=== PATIENT | male | born 1960 | race Hispanic/Latino ===

== ENCOUNTER 2018-03-01 00:53 | Emergency (ER) | payer MEDICARE ==
[~2018-03-01] VITALS: Ht 177.8 cm; Wt 97.5 kg
[~2018-03-01 00:53] MED LIST: CREON DR 12,001 EACH PO; CRESTOR20 MG PO; DULOXETINE PO; FENOFIBRATE PO; FENOFIBRATE145 MG PO; HUMALOG100 UNIT/1 SQ; INSULIN PUMP; LISINOPRIL5 MG PO; METFORMIN HCL500 M2 PO; NEXIUM40 MG PO; ZETIA10 MG PO
[2018-03-01] MEDS ORDERED: FUROSEMIDE INJ 10 MG/ML 4 ML VIAL IV ONE (01:15)
[2018-03-01 01:21] LABS: BASOPHILS % 0.8 % (0.0-1.0); EOSINOPHILS # (AUTO) 0.1 (0.0-0.4); HEMATOCRIT 41.3 % (38.2-49.6); HEMOGLOBIN 14.4 g/dL (14.0-18.0); LYMPHOCYTES # (AUTO) 1.1 (1.0-3.2); LYMPHOCYTES % 26.4 % (18.0-39.1); MEAN CORPUSCULAR HEMOGLOBIN 31.8 pg (28-32); MEAN CORPUSCULAR HGB CONC 34.9 g/dL (31-35); MEAN CORPUSCULAR VOLUME 91.2 fL (81-99); MONOCYTES # (AUTO) 0.4 (0.2-0.8); MONOCYTES % 10.1 % (4.4-11.3); NEUTROPHILS # (AUTO) 2.4 (2.1-6.9); NEUTROPHILS % 59.7 % (38.7-80.0); PLATELET COUNT 118 x10e3/uL (140-360); RED BLOOD COUNT 4.53 x10e6/uL (4.3-5.7); RED CELL DISTRIBUTION WIDTH 11.9 % (11.7-14.4)
[2018-03-01 01:48] LABS: ALANINE AMINOTRANSFERASE 23 IU/L (0-55); ALBUMIN 3.9 g/dL (3.5-5.0); ALBUMIN/GLOBULIN RATIO 1.2 (0.8-2.0); ALKALINE PHOSPHATASE 107 IU/L (40-150); ANION GAP 15.9 mmol/L (8-16); BLOOD UREA NITROGEN 16 mg/dL (7-26); BUN/CREATININE RATIO 13 (6-25); CALCIUM 9.7 mg/dL (8.4-10.2); CARBON DIOXIDE 22 mmol/L (22-29); CHLORIDE 102 mmol/L (98-107); CREATINE KINASE 63 IU/L (30-200); CREATININE, SERUM 1.24 mg/dL (0.72-1.25); EST GLOMERULAR FILTRATION RATE 60 ML/MIN (60-); POTASSIUM 3.9 mmol/L (3.5-5.1); SODIUM 136 mmol/L (136-145)
[2018-03-01 01:52] LABS: GLUCOSE 460 mg/dL (74-118)
[2018-03-01 02:01] LABS: BILIRUBIN,URINE NEGATIVE (NEGATIVE); CLARITY,URINE CLEAR (CLEAR); COLOR,URINE YELLOW (YELLOW); KETONES,URINE NEGATIVE (NEGATIVE); LEUKOCYTE ESTERASE ,URINE NEGATIVE (NEGATIVE); NITRITE,URINE NEGATIVE (NEGATIVE); PROTEIN,URINE DIPSTICK NEGATIVE (NEGATIVE); URINE UROBILINOGEN 0.2 mg/dL (0.2 - 1)
--- NOTE | 2018-03-01 02:01 | Diagnostic Imaging Report ---
CHEST 2 VIEWS, Technique: CHEST 2 VIEWS Comparison: 01/05/2017 Clinical history: Chest pain DISCUSSION: Stable appearance of the heart, mediastinum, lungs, and pleural spaces. There is IMPRESSION: No acute abnormality Signed by: Dr Charley Huynh MD on 03/01/2018 1:57 AM
[2018-03-01 02:02] LABS: EPITHELIAL CELLS,URINE FEW /LPF; RBC,URINE 0-5 /HPF (0-5); WBC,URINE (MAN) 0-5 /HPF (0-5)
[2018-03-01 02:17] VITALS: BP 152/93
== END 2018-03-01 02:35 | disposition home or self-care (01) ==
LOC: ER 00:53
DX: M25.572 Pain in left ankle and joints of left foot (principal); M25.571 Pain in right ankle and joints of right foot; R60.0 Localized edema
CPT/HCPCS: 36415; 71046; 80053; 81001; 82550; 82553; 83880; 84484; 85025; 93005; 99283; J1940

== ENCOUNTER → 2022-04-17 | Outpatient (CLI) | payer MEDICARE | LOC: MRI 09:54 | PROVIDERS: ATTEND Podiatrist Foot & Ankle Surgery | DX: M86.072 Acute hematogenous osteomyelitis, left ankle and foot (principal) ==

== ENCOUNTER 2022-04-26 09:10 | Inpatient (IN) | payer MEDICARE ==
[~2022-04-26] VITALS: Ht 160 cm; Wt 97.5 kg
[2022-04-26 09:59] LABS: BASOPHILS % 0.7 % (0.0-1.0); EOSINOPHILS # (AUTO) 0.1 (0.0-0.4); EOSINOPHILS % 3.2 % (0.0-6.0); HEMATOCRIT 47.8 % (38.2-49.6); LYMPHOCYTES # (AUTO) 1.2 (1.0-3.2); LYMPHOCYTES % 26.5 % (18.0-39.1); MEAN CORPUSCULAR HEMOGLOBIN 31.5 pg (28-32); MEAN CORPUSCULAR HGB CONC 33.5 g/dL (31-35); MEAN CORPUSCULAR VOLUME 94.1 fL (81-99); MONOCYTES # (AUTO) 0.5 (0.2-0.8); MONOCYTES % 11.3 % (4.4-11.3); NEUTROPHILS # (AUTO) 2.6 (2.1-6.9); NEUTROPHILS % 57.8 % (38.7-80.0); PLATELET COUNT 143 x10e3/uL (140-360); RED BLOOD COUNT 5.08 x10e6/uL (4.3-5.7); RED CELL DISTRIBUTION WIDTH 11.3 % (11.7-14.4)
[2022-04-26 10:16] LABS: INR 0.97; PROTHROMBIN TIME 13.8 seconds (11.9-14.5)
[2022-04-26 10:17] LABS: ALBUMIN/GLOBULIN RATIO 1.3 (0.8-2.0); ANION GAP 14.8 mmol/L (8-16); CALCIUM 9.6 mg/dL (8.4-10.2); CREATININE, SERUM 0.79 mg/dL (0.72-1.25); PARTIAL THROMBOPLASTIN TIME 35.4 seconds (23.8-35.5); POTASSIUM 3.8 mmol/L (3.5-5.1)
[2022-04-26] MEDS: Vancomycin IV 1 GM in SODIUM CHLORIDE 0.9% 250ML 250 ML IV SCH ×2 (10:54→21:40)
[2022-04-26] MEDS ORDERED: DEXTROSE 50% SYRINGE 50 ML IV PRN ×2 (12:30→16:00)
[2022-04-26] MEDS ORDERED: ONDANSETRON HCL INJ 2MG/ML 2ML 2 MG/ML VIAL IV PRN (12:30)
[2022-04-26] MEDS: SODIUM CHLORIDE 0.9% 1000ML 1,000 ML IV SCH (12:51)
[2022-04-26 15:28] VITALS: BP 142/70
[2022-04-26 15:35] VITALS: BP 142/70
[2022-04-26] MEDS: AMYLAS/CELLU/LIPAS/PROTEA/BILE 12,000 UNIT CAP PO SCH (16:13)
[2022-04-26 16:17] VITALS: BP 142/70
[2022-04-26] MEDS: INSULIN REGULAR, HUMAN 100 UNIT/1 ML SQ SCH ×2 (16:30→21:50)
[2022-04-26] MEDS ORDERED: CYMBALTA30 MG PO (16:59)
[2022-04-26] MEDS: METFORMIN HCL 500 MG TAB CR PO SCH (17:00)
[2022-04-26] MEDS ORDERED: SYNJARDY XR 121 EACH (17:02)
[2022-04-26] MEDS ORDERED: ASPIRIN81 MG PO (17:02)
[2022-04-26] MEDS ORDERED: NEURONTIN400 MG PO (17:02)
[2022-04-26] MEDS ORDERED: LOSARTAN POTASS25 MG PO (17:02)
[2022-04-26 20:00] VITALS: BP 151/81
[2022-04-26 20:17] VITALS: BP 142/70
[2022-04-27] VITALS (8 sets, daily range): BP systolic 129–159; BP diastolic 63–91
[2022-04-27] MEDS: SODIUM CHLORIDE 0.9% 1000ML 1,000 ML IV SCH ×2 (05:23→17:25)
[2022-04-27 05:46] LABS: BASOPHILS % 0.6 % (0.0-1.0); EOSINOPHILS # (AUTO) 0.2 (0.0-0.4); EOSINOPHILS % 3.4 % (0.0-6.0); HEMATOCRIT 47.2 % (38.2-49.6); HEMOGLOBIN 15.8 g/dL (14.0-18.0); LYMPHOCYTES # (AUTO) 1.3 (1.0-3.2); LYMPHOCYTES % 24.3 % (18.0-39.1); MEAN CORPUSCULAR HEMOGLOBIN 31.7 pg (28-32); MEAN CORPUSCULAR HGB CONC 33.5 g/dL (31-35); MEAN CORPUSCULAR VOLUME 94.8 fL (81-99); MONOCYTES # (AUTO) 0.7 (0.2-0.8); MONOCYTES % 12.7 % (4.4-11.3); NEUTROPHILS # (AUTO) 3.1 (2.1-6.9); NEUTROPHILS % 58.8 % (38.7-80.0); PLATELET COUNT 140 x10e3/uL (140-360); RED BLOOD COUNT 4.98 x10e6/uL (4.3-5.7); RED CELL DISTRIBUTION WIDTH 11.1 % (11.7-14.4)
[2022-04-27 06:05] LABS: ALBUMIN 3.8 g/dL (3.5-5.0); ALBUMIN/GLOBULIN RATIO 1.2 (0.8-2.0); ANION GAP 13.8 mmol/L (8-16); CALCIUM 9.6 mg/dL (8.4-10.2); CREATININE, SERUM 0.88 mg/dL (0.72-1.25); POTASSIUM 3.8 mmol/L (3.5-5.1)
[2022-04-27] MEDS ORDERED: SYNJARDY XR 121 EACH (06:57)
[2022-04-27] MEDS: INSULIN REGULAR, HUMAN 100 UNIT/1 ML SQ SCH ×5 (07:30→21:51)
[2022-04-27] MEDS: METFORMIN HCL 500 MG TAB CR PO SCH (08:00)
[2022-04-27] MEDS ORDERED: Vancomycin IV 1 GM VIAL ONE (08:51)
[2022-04-27] MEDS ORDERED: NON-FORMULARY MEDICATION (Rosuvastatin Calcium (Crestor) 20 MG) PO SCH (09:00)
[2022-04-27] MEDS: AMYLAS/CELLU/LIPAS/PROTEA/BILE 12,000 UNIT CAP PO SCH ×3 (09:58→17:24)
[2022-04-27] MEDS: PANTOPRAZOLE SOD 40 MG TABEC PO SCH (09:59)
[2022-04-27] MEDS: CRESTOR 10MG PO SCH (09:59)
[2022-04-27] MEDS: Vancomycin IV 1 GM in SODIUM CHLORIDE 0.9% 250ML 250 ML IV SCH ×2 (09:59→23:35)
[2022-04-27] MEDS: FENOFIBRATE 145 MG TAB PO SCH (10:00)
[2022-04-27] MEDS: EZETIMIBE 10 MG TAB PO SCH (10:00)
[2022-04-27] MEDS: SYNJARDY PO SCH (22:00)
[2022-04-28] VITALS (8 sets, daily range): BP systolic 117–166; BP diastolic 59–97
[2022-04-28] MEDS: SODIUM CHLORIDE 0.9% 1000ML 1,000 ML IV SCH ×2 (05:59→19:18)
[2022-04-28] MEDS: INSULIN REGULAR, HUMAN 100 UNIT/1 ML SQ SCH ×4 (07:30→20:16)
[2022-04-28] MEDS: Vancomycin IV 1 GM in SODIUM CHLORIDE 0.9% 250ML 250 ML IV SCH ×2 (09:45→20:16)
[2022-04-28] MEDS: SYNJARDY PO SCH ×3 (10:00→22:00)
[2022-04-28] MEDS: CRESTOR 10MG PO SCH (10:03)
[2022-04-28] MEDS: FENOFIBRATE 145 MG TAB PO SCH (10:03)
[2022-04-28] MEDS: AMYLAS/CELLU/LIPAS/PROTEA/BILE 12,000 UNIT CAP PO SCH ×3 (10:03→17:49)
[2022-04-28] MEDS: PANTOPRAZOLE SOD 40 MG TABEC PO SCH (10:03)
[2022-04-28] MEDS: EZETIMIBE 10 MG TAB PO SCH (10:03)
[2022-04-28] MEDS: SODIUM CHLORIDE FLUSH 10 ML SYR IV SCH ×2 (10:04→20:16)
[2022-04-29] VITALS (7 sets, daily range): BP systolic 108–154; BP diastolic 58–82
[2022-04-29] MEDS: SODIUM CHLORIDE 0.9% 1000ML 1,000 ML IV SCH ×2 (05:06→19:44)
[2022-04-29] MEDS: INSULIN REGULAR, HUMAN 100 UNIT/1 ML SQ SCH ×4 (07:30→19:45)
[2022-04-29] MEDS: AMYLAS/CELLU/LIPAS/PROTEA/BILE 12,000 UNIT CAP PO SCH ×3 (08:00→17:34)
[2022-04-29] MEDS: SODIUM CHLORIDE FLUSH 10 ML SYR IV SCH ×2 (08:38→19:44)
[2022-04-29] MEDS: CRESTOR 10MG PO SCH (08:38)
[2022-04-29] MEDS: PANTOPRAZOLE SOD 40 MG TABEC PO SCH (08:38)
[2022-04-29] MEDS: EZETIMIBE 10 MG TAB PO SCH (08:38)
[2022-04-29] MEDS: FENOFIBRATE 145 MG TAB PO SCH (08:38)
[2022-04-29] MEDS: SYNJARDY PO SCH (08:39)
[2022-04-29] MEDS: Vancomycin IV 1 GM in SODIUM CHLORIDE 0.9% 250ML 250 ML IV SCH (09:35)
[2022-04-29] MEDS ORDERED: HEPARIN SOD/SOD CHLORIDE 0 ML ONE (10:46)
[2022-04-29] MEDS ORDERED: HEPARIN SOD (PORCINE) 1000 UNIT/ML 30ML ONE (10:49)
[2022-04-29] MEDS ORDERED: FENTANYL CITRATE/PF 100MCG/2 ML INJ ONE (10:49)
[2022-04-29] MEDS ORDERED: MIDAZOLAM HCL 2 MG/2 ML VIAL ONE (10:49)
[2022-04-29] MEDS ORDERED: IOPAMIDOL 300MG/ML 50ML INFUS..BTL IV ONE (10:50)
[2022-04-29] MEDS ORDERED: HEPARIN SOD/SOD CHLORIDE 2,000 ML ONE (10:50)
[2022-04-29] MEDS ORDERED: LIDOCAINE HCL 1% LOCAL INJ 20 ML VIAL ONE (10:50)
[2022-04-29] MEDS ORDERED: NITROGLYCERIN/D5W 200 MCG/ML 250 ML ONE (11:40)
[2022-04-29] MEDS ORDERED: ONDANSETRON HCL 4 MG ORAL DISINTEGRATING TAB PO PRN (11:45)
[2022-04-30] VITALS (7 sets, daily range): BP systolic 129–157; BP diastolic 76–83
[2022-04-30] MEDS: SYNJARDY PO SCH ×3 (02:13→22:00)
[2022-04-30] MEDS: INSULIN REGULAR, HUMAN 100 UNIT/1 ML SQ SCH ×4 (07:30→21:00)
[2022-04-30] MEDS: AMYLAS/CELLU/LIPAS/PROTEA/BILE 12,000 UNIT CAP PO SCH ×3 (08:00→16:54)
[2022-04-30] MEDS: PANTOPRAZOLE SOD 40 MG TABEC PO SCH (09:00)
[2022-04-30] MEDS: EZETIMIBE 10 MG TAB PO SCH (09:00)
[2022-04-30] MEDS: CRESTOR 10MG PO SCH (09:00)
[2022-04-30] MEDS: FENOFIBRATE 145 MG TAB PO SCH (09:00)
[2022-04-30 09:13] LABS: BASOPHILS % 0.6 % (0.0-1.0); EOSINOPHILS # (AUTO) 0.2 (0.0-0.4); EOSINOPHILS % 3.3 % (0.0-6.0); HEMATOCRIT 45.1 % (38.2-49.6); LYMPHOCYTES % 20.4 % (18.0-39.1); MEAN CORPUSCULAR HEMOGLOBIN 31.8 pg (28-32); MEAN CORPUSCULAR HGB CONC 33.3 g/dL (31-35); MEAN CORPUSCULAR VOLUME 95.6 fL (81-99); MONOCYTES # (AUTO) 0.5 (0.2-0.8); MONOCYTES % 10.6 % (4.4-11.3); NEUTROPHILS # (AUTO) 3.2 (2.1-6.9); NEUTROPHILS % 65.1 % (38.7-80.0); PLATELET COUNT 123 x10e3/uL (140-360); RED BLOOD COUNT 4.72 x10e6/uL (4.3-5.7); RED CELL DISTRIBUTION WIDTH 11.5 % (11.7-14.4)
[2022-04-30] MEDS ORDERED: HEPARIN SOD (PORCINE) 1000 UNIT/ML 30ML ONE (09:21)
[2022-04-30] MEDS ORDERED: MIDAZOLAM HCL 2 MG/2 ML VIAL ONE ×2 (09:21→10:54)
[2022-04-30] MEDS ORDERED: NITROGLYCERIN/D5W 200 MCG/ML 250 ML ONE (09:22)
[2022-04-30] MEDS ORDERED: HEPARIN SOD/SOD CHLORIDE 2,000 ML ONE (09:22)
[2022-04-30] MEDS ORDERED: FENTANYL CITRATE/PF 100MCG/2 ML INJ ONE ×2 (09:22→11:26)
[2022-04-30] MEDS ORDERED: LIDOCAINE HCL 1% LOCAL INJ 20 ML VIAL ONE (09:22)
[2022-04-30] MEDS ORDERED: SODIUM CHLORIDE 0.9% 1000ML 1,000 ML ONE ×2 (09:23→10:02)
[2022-04-30] MEDS: SODIUM CHLORIDE 0.9% 1000ML 1,000 ML IV SCH (09:50)
[2022-04-30 10:29] LABS: BASOPHILS % 0.6 % (0.0-1.0); EOSINOPHILS # (AUTO) 0.2 (0.0-0.4); EOSINOPHILS % 3.2 % (0.0-6.0); HEMATOCRIT 45.2 % (38.2-49.6); HEMOGLOBIN 15.1 g/dL (14.0-18.0); LYMPHOCYTES # (AUTO) 1.1 (1.0-3.2); LYMPHOCYTES % 22.6 % (18.0-39.1); MEAN CORPUSCULAR HEMOGLOBIN 31.5 pg (28-32); MEAN CORPUSCULAR HGB CONC 33.4 g/dL (31-35); MEAN CORPUSCULAR VOLUME 94.4 fL (81-99); MONOCYTES # (AUTO) 0.5 (0.2-0.8); MONOCYTES % 10.2 % (4.4-11.3); NEUTROPHILS # (AUTO) 3.2 (2.1-6.9); NEUTROPHILS % 63.2 % (38.7-80.0); PLATELET COUNT 121 x10e3/uL (140-360); RED BLOOD COUNT 4.79 x10e6/uL (4.3-5.7); RED CELL DISTRIBUTION WIDTH 11.4 % (11.7-14.4)
[2022-04-30] MEDS ORDERED: VERAPAMIL HCL 2.5 MG/ML 2 ML VIAL ONE (10:44)
[2022-04-30 11:01] LABS: ALBUMIN 3.5 g/dL (3.5-5.0); ALBUMIN/GLOBULIN RATIO 1.2 (0.8-2.0); ANION GAP 13.5 mmol/L (8-16); CALCIUM 9.2 mg/dL (8.4-10.2); CREATININE, SERUM 0.7 mg/dL (0.72-1.25); POTASSIUM 3.5 mmol/L (3.5-5.1)
[2022-04-30] MEDS: SODIUM CHLORIDE FLUSH 10 ML SYR IV SCH ×2 (11:16→13:23)
[2022-04-30] MEDS ORDERED: CLOPIDOGREL BISULFATE 75 MG TAB ONE (11:21)
[2022-04-30] MEDS: HYDROCODONE/APAP 5MG-325MG TAB PO PRN (15:28)
[2022-05-01] VITALS (8 sets, daily range): BP systolic 140–173; BP diastolic 70–81
[2022-05-01] MEDS: SODIUM CHLORIDE 0.9% 1000ML 1,000 ML IV SCH ×2 (00:16→22:16)
[2022-05-01] MEDS: INSULIN REGULAR, HUMAN 100 UNIT/1 ML SQ SCH ×4 (07:30→21:00)
[2022-05-01] MEDS: CRESTOR 10MG PO SCH (08:37)
[2022-05-01] MEDS: PANTOPRAZOLE SOD 40 MG TABEC PO SCH (08:37)
[2022-05-01] MEDS: FENOFIBRATE 145 MG TAB PO SCH (08:38)
[2022-05-01] MEDS: EZETIMIBE 10 MG TAB PO SCH (08:38)
[2022-05-01] MEDS: AMYLAS/CELLU/LIPAS/PROTEA/BILE 12,000 UNIT CAP PO SCH ×3 (08:38→17:04)
[2022-05-01] MEDS: SYNJARDY PO SCH ×2 (08:40→21:23)
[2022-05-01] MEDS: HYDROCODONE/APAP 5MG-325MG TAB PO PRN ×3 (08:49→21:23)
[2022-05-01] MEDS: SODIUM CHLORIDE FLUSH 10 ML SYR IV SCH ×2 (09:00→21:30)
[2022-05-02 00:50] VITALS: BP 131/66
[2022-05-02] MEDS: SODIUM CHLORIDE 0.9% 1000ML 1,000 ML IV SCH ×2 (01:50→14:56)
[2022-05-02 05:05] VITALS: BP 126/64
[2022-05-02] MEDS: INSULIN REGULAR, HUMAN 100 UNIT/1 ML SQ SCH ×2 (07:30→11:30)
[2022-05-02 08:14] VITALS: BP 137/80
[2022-05-02] MEDS: CRESTOR 10MG PO SCH (08:45)
[2022-05-02] MEDS: AMYLAS/CELLU/LIPAS/PROTEA/BILE 12,000 UNIT CAP PO SCH ×2 (08:45→13:05)
[2022-05-02] MEDS: FENOFIBRATE 145 MG TAB PO SCH (08:46)
[2022-05-02] MEDS: PANTOPRAZOLE SOD 40 MG TABEC PO SCH (08:46)
[2022-05-02] MEDS: EZETIMIBE 10 MG TAB PO SCH (08:47)
[2022-05-02 08:50] VITALS: BP 137/80
[2022-05-02] MEDS: SYNJARDY PO SCH (08:55)
[2022-05-02] MEDS ORDERED: LOSARTAN POTASSIUM 25 MG TAB PO SCH (09:00)
[2022-05-02] MEDS ORDERED: CEFTRIAXONE 2 GM in SODIUM CHLORIDE 0.9% 100 ML IV SCH (09:00)
[2022-05-02] MEDS: SODIUM CHLORIDE FLUSH 10 ML SYR IV SCH (09:00)
[2022-05-02] MEDS ORDERED: CLOPIDOGREL BISULFATE 75 MG TAB PO SCH (09:00)
[2022-05-02] MEDS ORDERED: ASPIRIN 81 MG ENTERIC COATED PO SCH (09:00)
[2022-05-02 12:23] VITALS: BP 144/79
[2022-05-02] MEDS: HYDROCODONE/APAP 5MG-325MG TAB PO PRN (15:53)
[2022-05-02 16:11] VITALS: BP 158/80
== END 2022-05-02 16:50 | disposition home health service (06) | DRG 271 ==
LOC: ER 09:18 → ERHOLD 12:30 → MED/SURG2 14:46
PROC: 02HV33Z Insertion of Infusion Device into Superior Vena Cava, Percutaneous Approach (ICD-10-PCS; 2022-04-27)
PROC: B41D1ZZ Fluoroscopy of Aorta and Bilateral Lower Extremity Arteries using Low Osmolar Contrast (ICD-10-PCS; principal; 2022-04-29)
PROC: 04CQ3ZZ Extirpation of Matter from Left Anterior Tibial Artery, Percutaneous Approach (ICD-10-PCS; 2022-04-30)
PROC: 047Q3Z1 Dilation of Left Anterior Tibial Artery using Drug-Coated Balloon, Percutaneous Approach (ICD-10-PCS; 2022-04-30)
PROC: B41G1ZZ Fluoroscopy of Left Lower Extremity Arteries using Low Osmolar Contrast (ICD-10-PCS; 2022-04-30)
DX: E11.51 Type 2 diabetes mellitus with diabetic peripheral angiopathy without gangrene (principal); L03.116 Cellulitis of left lower limb; M86.8X7 Other osteomyelitis, ankle and foot; E11.69 Type 2 diabetes mellitus with other specified complication; E11.621 Type 2 diabetes mellitus with foot ulcer; E11.65 Type 2 diabetes mellitus with hyperglycemia; E78.5 Hyperlipidemia, unspecified; K21.9 Gastro-esophageal reflux disease without esophagitis; I10 Essential (primary) hypertension; E11.42 Type 2 diabetes mellitus with diabetic polyneuropathy; I70.202 Unspecified atherosclerosis of native arteries of extremities, left leg; S90.812A Abrasion, left foot, initial encounter; T54.91XA Toxic effect of unspecified corrosive substance, accidental (unintentional), initial encounter; T25.632A Corrosion of second degree of left toe(s) (nail), initial encounter; T79.8XXA Other early complications of trauma, initial encounter; Y92.019 Unspecified place in single-family (private) house as the place of occurrence of the external cause; Z91.048 Other nonmedicinal substance allergy status; L97.524 Non-pressure chronic ulcer of other part of left foot with necrosis of bone; B95.2 Enterococcus as the cause of diseases classified elsewhere; Z79.82 Long term (current) use of aspirin; Z79.4 Long term (current) use of insulin; Z79.84 Long term (current) use of oral hypoglycemic drugs
CPT/HCPCS: 36415; 36569; 71045; 75625; 75716; 80053; 80202; 82948; 83605; 85025; 85610; 85730; 87040; 87071; 87186; 87205; 93925; 99152; 99153; 99284; C1724; C1725; C1760; C1769; C1887; C1894; J0295; J0696; J1644; J1817; J2001; J2250; J2543; J3010; J3370; J7030; J7050

== ENCOUNTER 2022-11-12 21:43 | Emergency (ER) | payer MEDICARE ==
[~2022-11-12] VITALS: Ht 160 cm; Wt 97.5 kg
[~2022-11-12 21:43] MED LIST changes: +ASPIRIN81 MG PO; +CYMBALTA30 MG PO; +LOSARTAN POTASS25 MG PO; +NEURONTIN400 MG PO; +SYNJARDY XR 121 EACH
[2022-11-12] MEDS ORDERED: SODIUM CHLORIDE 0.9% 1000ML 1,000 ML IV STA (23:02)
[2022-11-12 23:34] LABS: BASOPHILS % 0.6 % (0.0-1.0); EOSINOPHILS # (AUTO) 0.1 (0.0-0.4); EOSINOPHILS % 1.8 % (0.0-6.0); HEMATOCRIT 42.4 % (38.2-49.6); HEMOGLOBIN 14.5 g/dL (14.0-18.0); LYMPHOCYTES # (AUTO) 0.9 (1.0-3.2); LYMPHOCYTES % 18.7 % (18.0-39.1); MEAN CORPUSCULAR HGB CONC 34.2 g/dL (31-35); MEAN CORPUSCULAR VOLUME 93.6 fL (81-99); MONOCYTES # (AUTO) 0.8 (0.2-0.8); MONOCYTES % 16.4 % (4.4-11.3); NEUTROPHILS % 62.3 % (38.7-80.0); PLATELET COUNT 114 x10e3/uL (140-360); RED BLOOD COUNT 4.53 x10e6/uL (4.3-5.7); RED CELL DISTRIBUTION WIDTH 12.3 % (11.7-14.4)
[2022-11-12 23:49] LABS: ALBUMIN 3.9 g/dL (3.5-5.0); ALBUMIN/GLOBULIN RATIO 1.3 (0.8-2.0); ANION GAP 16.9 mmol/L (8-16); CALCIUM 9.6 mg/dL (8.4-10.2); CREATININE, SERUM 2.06 mg/dL (0.72-1.25); POTASSIUM 3.9 mmol/L (3.5-5.1)
[2022-11-13 00:12] LABS: CREATINE KINASE MB 13.8 ng/mL (0-5.0)
[2022-11-13] MEDS ORDERED: SODIUM CHLORIDE 0.9% 1000ML 1,000 ML IV STA ×2 (01:11)
[2022-11-13 03:30] LABS: AMPHETAMINES SCREEN,URINE NEGATIVE (NEGATIVE); BENZODIAZEPINES SCREEN,URINE NEGATIVE (NEGATIVE); PHENCYCLIDINE SCREEN,URINE NEGATIVE (NEGATIVE)
[2022-11-13 04:22] LABS: ALBUMIN 3.7 g/dL (3.5-5.0); ALBUMIN/GLOBULIN RATIO 1.2 (0.8-2.0); ANION GAP 15.1 mmol/L (8-16); CALCIUM 9.1 mg/dL (8.4-10.2); CREATININE, SERUM 1.15 mg/dL (0.72-1.25); POTASSIUM 4.1 mmol/L (3.5-5.1)
[2022-11-13 04:51] VITALS: BP 157/75; PULSE 70; RESP 18; TEMP 97.9; O2SAT 99
== END 2022-11-13 04:54 | disposition home or self-care (01) ==
LOC: ER 22:09
DX: R55 Syncope and collapse (principal); E86.0 Dehydration; Y93.H2 Activity, gardening and landscaping; Y92.096 Garden or yard of other non-institutional residence as the place of occurrence of the external cause; E11.65 Type 2 diabetes mellitus with hyperglycemia; E78.5 Hyperlipidemia, unspecified; K21.9 Gastro-esophageal reflux disease without esophagitis; E78.00 Pure hypercholesterolemia, unspecified
CPT/HCPCS: 36415; 70450; 71045; 80053; 80307; 82550; 82553; 83690; 83880; 84484; 85025; 93005; 99284; J7030 ×2

== ENCOUNTER 2023-12-22 05:53 | Emergency (ER) | payer MEDICARE ==
[~2023-12-22] VITALS: Ht 177.8 cm; Wt 97.5 kg
[2023-12-22 06:02] VITALS: PULSE 78; RESP 19; TEMP 98.5; O2SAT 94
[2023-12-22 06:22] LABS: BASOPHILS % 0.8 % (0.0-1.0); EOSINOPHILS # (AUTO) 0.2 (0.0-0.4); EOSINOPHILS % 3.8 % (0.0-6.0); HEMATOCRIT 45.8 % (38.2-49.6); HEMOGLOBIN 15.7 g/dL (14.0-18.0); LYMPHOCYTES # (AUTO) 1.2 (1.0-3.2); LYMPHOCYTES % 29.6 % (18.0-39.1); MEAN CORPUSCULAR HEMOGLOBIN 31.7 pg (28-32); MEAN CORPUSCULAR HGB CONC 34.3 g/dL (31-35); MEAN CORPUSCULAR VOLUME 92.3 fL (81-99); MONOCYTES # (AUTO) 0.6 (0.2-0.8); MONOCYTES % 14.5 % (4.4-11.3); NEUTROPHILS % 51.3 % (38.7-80.0); PLATELET COUNT 131 x10e3/uL (140-360); RED BLOOD COUNT 4.96 x10e6/uL (4.3-5.7); WHITE BLOOD COUNT 3.92 x10e3/uL (4.8-10.8)
[2023-12-22 06:32] LABS: INR 1.07; PROTHROMBIN TIME 14.7 seconds (11.9-14.5)
[2023-12-22 06:33] LABS: PARTIAL THROMBOPLASTIN TIME 35.4 seconds (23.8-35.5)
[2023-12-22 06:41] LABS: ALANINE AMINOTRANSFERASE 25 IU/L (0-55); ALBUMIN 4.1 g/dL (3.5-5.0); ALBUMIN/GLOBULIN RATIO 1.3 (0.8-2.0); ALKALINE PHOSPHATASE 79 IU/L (40-150); ANION GAP 15.3 mmol/L (8-16); BILIRUBIN,TOTAL 1.2 mg/dL (0.2-1.2); BLOOD UREA NITROGEN 24 mg/dL (7-26); BUN/CREATININE RATIO 19 (6-25); CALCIUM 9.4 mg/dL (8.4-10.2); CARBON DIOXIDE 24 mmol/L (22-29); CHLORIDE 103 mmol/L (98-107); CREATINE KINASE 109 IU/L (30-200); CREATININE, SERUM 1.28 mg/dL (0.72-1.25); EST GLOMERULAR FILTRATION RATE 62 ML/MIN (>=60); GLUCOSE 119 mg/dL (74-118); LIPASE 41 U/L (8-78); POTASSIUM 4.3 mmol/L (3.5-5.1); SODIUM 138 mmol/L (136-145); TOTAL PROTEIN 7.3 g/dL (6.5-8.1)
[2023-12-22 06:56] LABS: TROPONIN I < 0.001 ng/mL (0-0.300)
[2023-12-22] MEDS ORDERED: DICYCLOMINE HCL20 MG PO (08:41)
== END 2023-12-22 08:57 | disposition home or self-care (01) ==
LOC: ER 06:12
DX: R10.12 Left upper quadrant pain (principal); K86.89 Other specified diseases of pancreas; E11.9 Type 2 diabetes mellitus without complications; E78.00 Pure hypercholesterolemia, unspecified; E78.1 Pure hyperglyceridemia; Z88.8 Allergy status to other drugs, medicaments and biological substances; Z91.048 Other nonmedicinal substance allergy status; Z79.82 Long term (current) use of aspirin; Z79.4 Long term (current) use of insulin; Z79.84 Long term (current) use of oral hypoglycemic drugs; Z79.899 Other long term (current) drug therapy
CPT/HCPCS: 36415; 71045; 80053; 82550; 83690; 83735; 83880; 84484; 85025; 85610; 85730; 93005; 99284; C9113; J2470

== ENCOUNTER → 2024-01-22 | Outpatient (REF) | payer MEDICARE ==
[~2024-01-22] MED LIST changes: +DICYCLOMINE HCL20 MG PO
== END ==
LOC: MRI 09:26
PROVIDERS: ATTEND Psychiatry & Neurology Clinical Neurophysiology
DX: R42 Dizziness and giddiness (principal)
CPT/HCPCS: 70551; 72050